=== PATIENT | male | born 1990 | race Caucasian/White ===

== ENCOUNTER 2022-04-19 20:48 | Emergency (ER) | payer OTHER ==
[~2022-04-19] VITALS: Ht 188 cm; Wt 106.6 kg
[2022-04-19 20:59] VITALS: BP_SYST 173
--- NOTE | 2022-04-19 21:35 | NUR ---
Pt brought by self, A&Ox4, pt presents to ER with L knee pain after he heard a pop on knee while leg was stuck , swelling noted at the site, skin pink and warm, cap refill <3, VSS
--- NOTE | 2022-04-19 23:04 | NUR ---
Report given to Nalini DEE
--- NOTE | 2022-04-19 23:05 | NUR ---
Dr Lilly evaluating patient in the triage room
[2022-04-19] MEDS ORDERED: NAPR-690 PO (23:10)
[2022-04-19] MEDS ORDERED: KETOROLAC TROMETHAMINE 60 MG/2 ML VIAL IM ONE (23:15)
--- NOTE | 2022-04-19 23:22 | NUR ---
DR. SAUCEDO RE EVALUATING AND GIVING INSTRUCTION AND PRESCRIPTION. ALL QUESTION WERE ANSWERED AND PT VERBALIZED UNDERSTANDING
--- NOTE | 2022-04-19 23:22 | NUR ---
Patient given written and verbal discharge instructions by Dr Lilly and verbalizes understanding. ER MD discussed with patient the results and treatment provided by Dr Lilly. Patient in stable condition. ID arm band removed by Dr Lilly. Rx of Naproxen tab given by Dr Lilly. Patient educated on pain management and to follow up with PMD. Pain Scale 5/10. Opportunity for questions provided and answered.
[2022-04-19 23:26] VITALS: BP_SYST 127
--- NOTE | 2022-04-19 23:28 | NUR ---
DC PT HOME AAOX4, KNEE BRACE AND CRUTHCES PROVIDED TO PT. 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 INFORMED PT TO GO BACK TO ER OR F/U WITH HIS PCP. HEVERBALIZED UNDERSTANDING
== END 2022-04-19 23:26 | disposition home or self-care (01) ==
LOC: SED 20:48
DX: S83.92XA Sprain of unspecified site of left knee, initial encounter (principal); I10 Essential (primary) hypertension; Z88.0 Allergy status to penicillin; W22.8XXA Striking against or struck by other objects, initial encounter; Y93.89 Activity, other specified; Y92.89 Other specified places as the place of occurrence of the external cause; Y99.8 Other external cause status
CPT/HCPCS: 73564; 96372; 99283; J1885